=== PATIENT | male | born 1940 | race Caucasian/White ===

== ENCOUNTER 2017-10-26 19:09 | Inpatient (IN) | payer MEDICARE, BC ==
[~2017-10-26] VITALS: Ht 180.3 cm; Wt 97.0 kg
[~2017-10-26 19:09] MED LIST: ATOR40TA PO; B CM1TAB PO; BIOT25008 PO; CLOP75TA35 PO; DOCU250C4 PO; GLUC1CAP36 PO; HYDR-3972 PO; HYDR25TA4 PO; LOSA25TA12 PO; METO25TA6 PO; MULT-1085 PO
[2017-10-26] MEDS ORDERED: FLO0.4C PO (19:30)
[2017-10-26] MEDS ORDERED: MELA3TAB PO (19:30)
[2017-10-26] MEDS ORDERED: DABI150C PO (19:30)
[2017-10-26] MEDS ORDERED: morphine 4 MG/ML inj SYRINge IV ONE (20:50)
[2017-10-26 21:53] LABS: BASOPHILS % (AUTO) 0.1 % (0-1); EOSINOPHILS # (AUTO) 0.1 X10'3 (0-0.9); EOSINOPHILS % (AUTO) 1.2 % (0-6); HEMATOCRIT 51.4 % (42.0-52.0); HEMOGLOBIN 16.6 g/dl (14.0-17.9); LYMPHOCYTES # (AUTO) 0.7 X10'3 (1.1-4.8); LYMPHOCYTES % (AUTO) 7.1 % (21-51); MEAN CORPUSCULAR HEMOGLOBIN 30.7 PG (27.0-31.0); MEAN CORPUSCULAR HGB CONC 32.3 % (33.0-36.5); MEAN CORPUSCULAR VOLUME 94.8 FL (78-98); MEAN PLATELET VOLUME 8.4 FL (7.4-10.4); MONOCYTES # (AUTO) 0.8 X10'3 (0-0.9); NEUTROPHILS # (AUTO) 8.6 X10'3 (1.8-7.7); NEUTROPHILS % (AUTO) 83.6 % (42-75); PLATELET COUNT 188 X10'3 (140-440); RED BLOOD COUNT 5.42 X10'6 (4.70-6.10); RED CELL DISTRIBUTION WIDTH 16.1 % (11.5-14.5); WHITE BLOOD COUNT 10.3 X10'3 (4.5-11.0)
[2017-10-26] MEDS ORDERED: mag hydrox/Alum hydrox/simeth 30ml oral suspension PO PRN (21:55)
[2017-10-26] MEDS ORDERED: morphine 4 MG/ML inj SYRINge IV PRN (21:55)
[2017-10-26] MEDS ORDERED: ondansetron/PF 4mg/2ml inj IV PRN (21:55)
[2017-10-26] MEDS ORDERED: acetaminophen 325mg tablet PO PRN (21:55)
[2017-10-26 22:09] LABS: ALBUMIN 2.9 G/DL (3.4-5.0); ALBUMIN/GLOBULIN RATIO 0.7 (1.1-1.5); ALKALINE PHOSPHATASE 204 IU/L (46-116); ANION GAP 7 (8-16); ASPARTATE AMINO TRANSFERASE 32 U/L (10-37); BILIRUBIN,TOTAL 2.4 MG/DL (0.1-1.0); BLOOD UREA NITROGEN 25 MG/DL (7-18); BUN/CREATININE RATIO 20.3 (5.4-32.0); CHLORIDE 104 MMOL/L (99-107); CREATININE 1.23 MG/DL (0.60-1.10); GLUCOSE 122 MG/DL (70-104); POTASSIUM 3.6 MMOL/L (3.5-5.1); SODIUM 139 MMOL/L (135-145); TOTAL CARBON DIOXIDE 28.4 MMOL/L (24-32); TOTAL PROTEIN 7.2 G/DL (6.4-8.2); eGFR 57 ML/MIN
[2017-10-26 22:24] LABS: ALANINE AMINOTRANSFERASE 30 U/L (12-78)
[2017-10-26] MEDS: normal saline 1000ml 1,000 ML IV SCH (22:36)
[2017-10-26 22:48] LABS: INR 1.2 INR; PARTIAL THROMBOPLASTIN TIME 28 SECONDS (22-32); PROTHROMBIN TIME 12.6 SECONDS (9.0-12.0)
[2017-10-26 23:00] VITALS: BP 147/84
[2017-10-26] MEDS: ceFAZolin 1GM/D5W- ADD-VANTAGE 50 ML IV SCH (23:03)
[2017-10-26] MEDS: morphine 4 MG/ML inj SYRINge IV PRN (23:58)
[2017-10-27] VITALS (13 sets, daily range): BP systolic 113–142; BP diastolic 65–97
[2017-10-27 05:11] LABS: BASOPHILS % (AUTO) 0.3 % (0-1); EOSINOPHILS # (AUTO) 0.2 X10'3 (0-0.9); EOSINOPHILS % (AUTO) 1.8 % (0-6); HEMATOCRIT 49.4 % (42.0-52.0); LYMPHOCYTES # (AUTO) 0.8 X10'3 (1.1-4.8); LYMPHOCYTES % (AUTO) 8.5 % (21-51); MEAN CORPUSCULAR HEMOGLOBIN 30.9 PG (27.0-31.0); MEAN CORPUSCULAR HGB CONC 32.3 % (33.0-36.5); MEAN CORPUSCULAR VOLUME 95.6 FL (78-98); MEAN PLATELET VOLUME 8.3 FL (7.4-10.4); MONOCYTES % (AUTO) 10.6 % (2-12); NEUTROPHILS # (AUTO) 7.5 X10'3 (1.8-7.7); NEUTROPHILS % (AUTO) 78.8 % (42-75); PLATELET COUNT 184 X10'3 (140-440); RED BLOOD COUNT 5.17 X10'6 (4.70-6.10); RED CELL DISTRIBUTION WIDTH 16.4 % (11.5-14.5); WHITE BLOOD COUNT 9.6 X10'3 (4.5-11.0)
[2017-10-27 05:36] LABS: ALBUMIN 2.7 G/DL (3.4-5.0); ANION GAP 7 (8-16); BLOOD UREA NITROGEN 28 MG/DL (7-18); BUN/CREATININE RATIO 23.5 (5.4-32.0); CHLORIDE 105 MMOL/L (99-107); CREATININE 1.19 MG/DL (0.60-1.10); GLUCOSE 134 MG/DL (70-104); POTASSIUM 3.6 MMOL/L (3.5-5.1); SODIUM 141 MMOL/L (135-145); TOTAL CARBON DIOXIDE 29.2 MMOL/L (24-32); eGFR 59 ML/MIN
[2017-10-27] MEDS: ceFAZolin 1GM/D5W- ADD-VANTAGE 50 ML IV SCH ×2 (07:42→22:40)
[2017-10-27] MEDS: losartan 25mg tablet PO SCH (07:43)
[2017-10-27] MEDS: tamsulosin 0.4mg capsule PO SCH (07:43)
[2017-10-27] MEDS: metoprolol tartrate 25mg tablet PO SCH (07:44)
[2017-10-27] MEDS: docusate sod 250mg capsule PO SCH ×2 (08:00→20:00)
[2017-10-27] MEDS: vitamin B comp w/Vit. C tab 1 TAB TABLET PO SCH (08:00)
[2017-10-27] MEDS: multivitamins, therapeutics tablet PO SCH (08:00)
[2017-10-27] MEDS: HYDROchlorothiazide 25mg tablet PO SCH (08:00)
[2017-10-27] MEDS ORDERED: [UNRECOGNIZED DRUG - OTHER] PO SCH (08:00)
[2017-10-27] MEDS: normal saline 1000ml 1,000 ML IV SCH (12:09)
[2017-10-27] MEDS: morphine 4 MG/ML inj SYRINge IV PRN (14:38)
[2017-10-27] MEDS: lactobacillus rhamnosus 10,000 MMU CELLS/CAPSULE PO SCH (20:00)
[2017-10-27] MEDS ORDERED: sevoflurane 250ml liquid IH ONE (20:28)
[2017-10-27] MEDS ORDERED: fentaNYL /PF 50mcg/ml 5ml ampule ONE (20:31)
[2017-10-27] MEDS ORDERED: propofol inj 20 ML IV ONE (20:31)
[2017-10-27] MEDS ORDERED: ringers solution, lacted 1,000 ML IV SCH (20:58)
[2017-10-27] MEDS: Melatonin 3mg tablet PO SCH (21:00)
[2017-10-27] MEDS ORDERED: proCHLORperazine 10 MG/2 ml inj IV PRN (21:00)
[2017-10-27] MEDS ORDERED: ondansetron/PF 4mg/2ml inj IV PRN (21:00)
[2017-10-27] MEDS: atorvastatin 20mg tablet PO SCH (21:00)
[2017-10-27] MEDS ORDERED: morphine 4 MG/ML inj SYRINge IV PRN ×2 (21:00)
[2017-10-27] MEDS ORDERED: meperidine/PF 25mg/ml syringe IV PRN ×3 (21:00)
[2017-10-28] VITALS (8 sets, daily range): BP systolic 116–142; BP diastolic 77–86
[2017-10-28] MEDS: ceFAZolin 1GM/D5W- ADD-VANTAGE 50 ML IV SCH ×3 (00:13→15:33)
[2017-10-28] MEDS: normal saline 1000ml 1,000 ML IV SCH ×2 (02:45→13:54)
[2017-10-28] MEDS: morphine 4 MG/ML inj SYRINge IV PRN ×2 (02:45→07:33)
[2017-10-28 04:46] LABS: BASOPHILS % (AUTO) 0 % (0-1); EOSINOPHILS # (AUTO) 0.2 X10'3 (0-0.9); EOSINOPHILS % (AUTO) 1.4 % (0-6); HEMATOCRIT 47.2 % (42.0-52.0); HEMOGLOBIN 15.3 g/dl (14.0-17.9); LYMPHOCYTES # (AUTO) 0.6 X10'3 (1.1-4.8); LYMPHOCYTES % (AUTO) 4.6 % (21-51); MEAN CORPUSCULAR HEMOGLOBIN 30.9 PG (27.0-31.0); MEAN CORPUSCULAR HGB CONC 32.5 % (33.0-36.5); MEAN CORPUSCULAR VOLUME 95.2 FL (78-98); MEAN PLATELET VOLUME 8.5 FL (7.4-10.4); MONOCYTES # (AUTO) 0.9 X10'3 (0-0.9); MONOCYTES % (AUTO) 7.1 % (2-12); NEUTROPHILS # (AUTO) 10.5 X10'3 (1.8-7.7); NEUTROPHILS % (AUTO) 86.9 % (42-75); PLATELET COUNT 171 X10'3 (140-440); RED BLOOD COUNT 4.96 X10'6 (4.70-6.10); WHITE BLOOD COUNT 12.1 X10'3 (4.5-11.0)
[2017-10-28 04:57] LABS: ALBUMIN 2.4 G/DL (3.4-5.0); ANION GAP 9 (8-16); BLOOD UREA NITROGEN 27 MG/DL (7-18); BUN/CREATININE RATIO 21.3 (5.4-32.0); CALCIUM 8.7 MG/DL (8.5-10.1); CHLORIDE 105 MMOL/L (99-107); CREATININE 1.27 MG/DL (0.60-1.10); GLUCOSE 141 MG/DL (70-104); POTASSIUM 3.9 MMOL/L (3.5-5.1); SODIUM 138 MMOL/L (135-145); TOTAL CARBON DIOXIDE 24.5 MMOL/L (24-32); eGFR 55 ML/MIN
[2017-10-28] MEDS ORDERED: HYDROcodone/acetaminophen 5mg/325mg tablet PO PRN (05:05)
[2017-10-28] MEDS: HYDROcodone/acetaminophen 5mg/325mg tablet PO PRN ×4 (05:18→17:04)
[2017-10-28] MEDS: tamsulosin 0.4mg capsule PO SCH (07:35)
[2017-10-28] MEDS: metoprolol tartrate 25mg tablet PO SCH (07:35)
[2017-10-28] MEDS: losartan 25mg tablet PO SCH (07:35)
[2017-10-28] MEDS: HYDROchlorothiazide 25mg tablet PO SCH (07:36)
[2017-10-28] MEDS: docusate sod 250mg capsule PO SCH ×2 (07:36→20:29)
[2017-10-28] MEDS: lactobacillus rhamnosus 10,000 MMU CELLS/CAPSULE PO SCH ×2 (07:36→20:29)
[2017-10-28] MEDS: vitamin B comp w/Vit. C tab 1 TAB TABLET PO SCH (07:37)
[2017-10-28] MEDS: multivitamins, therapeutics tablet PO SCH (07:37)
[2017-10-28] MEDS: dabigatran 150mg capsule PO SCH (20:29)
[2017-10-28] MEDS: Melatonin 3mg tablet PO SCH (20:29)
[2017-10-28] MEDS: atorvastatin 20mg tablet PO SCH (20:29)
[2017-10-29] MEDS: ceFAZolin 1GM/D5W- ADD-VANTAGE 50 ML IV SCH ×3 (00:17→15:50)
[2017-10-29] MEDS: HYDROcodone/acetaminophen 5mg/325mg tablet PO PRN ×5 (04:24→20:02)
[2017-10-29 05:43] LABS: BASOPHILS % (AUTO) 0.2 % (0-1); EOSINOPHILS # (AUTO) 0.3 X10'3 (0-0.9); EOSINOPHILS % (AUTO) 2.8 % (0-6); HEMATOCRIT 46.8 % (42.0-52.0); HEMOGLOBIN 15.4 g/dl (14.0-17.9); LYMPHOCYTES # (AUTO) 0.9 X10'3 (1.1-4.8); MEAN CORPUSCULAR HEMOGLOBIN 31.3 PG (27.0-31.0); MEAN CORPUSCULAR VOLUME 94.9 FL (78-98); MEAN PLATELET VOLUME 8.4 FL (7.4-10.4); MONOCYTES # (AUTO) 1.3 X10'3 (0-0.9); MONOCYTES % (AUTO) 11.8 % (2-12); NEUTROPHILS # (AUTO) 8.4 X10'3 (1.8-7.7); NEUTROPHILS % (AUTO) 77.2 % (42-75); PLATELET COUNT 163 X10'3 (140-440); RED BLOOD COUNT 4.93 X10'6 (4.70-6.10); RED CELL DISTRIBUTION WIDTH 16.5 % (11.5-14.5); WHITE BLOOD COUNT 10.8 X10'3 (4.5-11.0)
[2017-10-29 05:54] LABS: ALBUMIN 2.3 G/DL (3.4-5.0); ANION GAP 9 (8-16); BLOOD UREA NITROGEN 28 MG/DL (7-18); CALCIUM 8.4 MG/DL (8.5-10.1); CHLORIDE 102 MMOL/L (99-107); CREATININE 1.22 MG/DL (0.60-1.10); GLUCOSE 103 MG/DL (70-104); POTASSIUM 3.8 MMOL/L (3.5-5.1); SODIUM 136 MMOL/L (135-145); TOTAL CARBON DIOXIDE 25.2 MMOL/L (24-32); eGFR 57 ML/MIN
[2017-10-29 06:00] VITALS: BP 132/77
[2017-10-29] MEDS: normal saline 1000ml 1,000 ML IV SCH ×2 (06:51→12:56)
[2017-10-29] MEDS: dabigatran 150mg capsule PO SCH ×2 (08:12→20:03)
[2017-10-29] MEDS: docusate sod 250mg capsule PO SCH ×2 (08:13→20:02)
[2017-10-29] MEDS: tamsulosin 0.4mg capsule PO SCH (08:13)
[2017-10-29] MEDS: lactobacillus rhamnosus 10,000 MMU CELLS/CAPSULE PO SCH ×2 (08:13→20:03)
[2017-10-29] MEDS: multivitamins, therapeutics tablet PO SCH (08:14)
[2017-10-29] MEDS: losartan 25mg tablet PO SCH (08:14)
[2017-10-29] MEDS: vitamin B comp w/Vit. C tab 1 TAB TABLET PO SCH (08:14)
[2017-10-29] MEDS: HYDROchlorothiazide 25mg tablet PO SCH (08:14)
[2017-10-29] MEDS: metoprolol tartrate 25mg tablet PO SCH (08:15)
[2017-10-29 10:00] VITALS: BP 152/87
[2017-10-29] MEDS: Protein Shake (high protein) 240ml (8oz) cup PO SCH ×3 (10:17→18:00)
[2017-10-29 18:00] VITALS: BP 135/92
[2017-10-29] MEDS: atorvastatin 20mg tablet PO SCH (20:02)
[2017-10-29] MEDS: Melatonin 3mg tablet PO SCH (20:03)
[2017-10-29 22:00] VITALS: BP 141/82
[2017-10-30] MEDS: HYDROcodone/acetaminophen 5mg/325mg tablet PO PRN ×4 (00:16→19:53)
[2017-10-30] MEDS: ceFAZolin 1GM/D5W- ADD-VANTAGE 50 ML IV SCH ×2 (00:17→08:22)
[2017-10-30] MEDS: temazepam 15mg capsule PO PRN (00:21)
[2017-10-30] MEDS: normal saline 1000ml 1,000 ML IV SCH ×2 (02:38→15:22)
[2017-10-30 05:48] LABS: BASOPHILS % (AUTO) 0.2 % (0-1); EOSINOPHILS # (AUTO) 0.4 X10'3 (0-0.9); EOSINOPHILS % (AUTO) 3.7 % (0-6); HEMATOCRIT 46.8 % (42.0-52.0); HEMOGLOBIN 15.4 g/dl (14.0-17.9); LYMPHOCYTES # (AUTO) 0.8 X10'3 (1.1-4.8); LYMPHOCYTES % (AUTO) 7.9 % (21-51); MEAN CORPUSCULAR HEMOGLOBIN 31.4 PG (27.0-31.0); MEAN CORPUSCULAR HGB CONC 32.8 % (33.0-36.5); MEAN CORPUSCULAR VOLUME 95.6 FL (78-98); MEAN PLATELET VOLUME 8.5 FL (7.4-10.4); MONOCYTES # (AUTO) 1.5 X10'3 (0-0.9); MONOCYTES % (AUTO) 14.7 % (2-12); NEUTROPHILS # (AUTO) 7.3 X10'3 (1.8-7.7); NEUTROPHILS % (AUTO) 73.5 % (42-75); PLATELET COUNT 157 X10'3 (140-440); RED BLOOD COUNT 4.89 X10'6 (4.70-6.10); RED CELL DISTRIBUTION WIDTH 16.4 % (11.5-14.5); WHITE BLOOD COUNT 9.9 X10'3 (4.5-11.0)
[2017-10-30 06:00] VITALS: BP 136/78
[2017-10-30 06:13] LABS: ALBUMIN 1.9 G/DL (3.4-5.0); ANION GAP 8 (8-16); BLOOD UREA NITROGEN 23 MG/DL (7-18); BUN/CREATININE RATIO 23.2 (5.4-32.0); CALCIUM 8.3 MG/DL (8.5-10.1); CHLORIDE 103 MMOL/L (99-107); CREATININE 0.99 MG/DL (0.60-1.10); GLUCOSE 96 MG/DL (70-104); SODIUM 134 MMOL/L (135-145); TOTAL CARBON DIOXIDE 23.4 MMOL/L (24-32); eGFR 73 ML/MIN
[2017-10-30 06:16] LABS: POTASSIUM 3.6 MMOL/L (3.5-5.1)
[2017-10-30] MEDS: Protein Shake (high protein) 240ml (8oz) cup PO SCH ×3 (08:00→18:00)
[2017-10-30] MEDS: dabigatran 150mg capsule PO SCH ×2 (08:23→19:52)
[2017-10-30] MEDS: vitamin B comp w/Vit. C tab 1 TAB TABLET PO SCH (08:23)
[2017-10-30] MEDS: lactobacillus rhamnosus 10,000 MMU CELLS/CAPSULE PO SCH ×2 (08:24→19:52)
[2017-10-30] MEDS: docusate sod 250mg capsule PO SCH ×2 (08:24→19:52)
[2017-10-30] MEDS: losartan 25mg tablet PO SCH (08:24)
[2017-10-30] MEDS: HYDROchlorothiazide 25mg tablet PO SCH (08:24)
[2017-10-30] MEDS: tamsulosin 0.4mg capsule PO SCH (08:24)
[2017-10-30] MEDS: metoprolol tartrate 25mg tablet PO SCH (08:24)
[2017-10-30] MEDS: multivitamins, therapeutics tablet PO SCH (08:24)
[2017-10-30 18:00] VITALS: BP 139/85
[2017-10-30] MEDS: magnesium hydroxide 30ml (MOM) UD suspension PO PRN (19:52)
[2017-10-30] MEDS: Melatonin 3mg tablet PO SCH (19:52)
[2017-10-30] MEDS: atorvastatin 20mg tablet PO SCH (19:53)
[2017-10-31] MEDS: HYDROcodone/acetaminophen 5mg/325mg tablet PO PRN ×5 (04:52→23:32)
[2017-10-31 06:00] VITALS: BP 134/78
[2017-10-31 07:01] LABS: BASOPHILS % (AUTO) 0.1 % (0-1); EOSINOPHILS # (AUTO) 0.2 X10'3 (0-0.9); EOSINOPHILS % (AUTO) 2.4 % (0-6); HEMATOCRIT 45.3 % (42.0-52.0); HEMOGLOBIN 14.9 g/dl (14.0-17.9); LYMPHOCYTES # (AUTO) 0.7 X10'3 (1.1-4.8); LYMPHOCYTES % (AUTO) 7.3 % (21-51); MEAN CORPUSCULAR HGB CONC 32.8 % (33.0-36.5); MEAN CORPUSCULAR VOLUME 94.5 FL (78-98); MEAN PLATELET VOLUME 8.1 FL (7.4-10.4); MONOCYTES # (AUTO) 0.9 X10'3 (0-0.9); MONOCYTES % (AUTO) 9.6 % (2-12); NEUTROPHILS # (AUTO) 7.6 X10'3 (1.8-7.7); NEUTROPHILS % (AUTO) 80.6 % (42-75); PLATELET COUNT 190 X10'3 (140-440); RED BLOOD COUNT 4.79 X10'6 (4.70-6.10); RED CELL DISTRIBUTION WIDTH 16.2 % (11.5-14.5); WHITE BLOOD COUNT 9.4 X10'3 (4.5-11.0)
[2017-10-31] MEDS: metoprolol tartrate 25mg tablet PO SCH (07:49)
[2017-10-31] MEDS: dabigatran 150mg capsule PO SCH ×2 (07:49→19:39)
[2017-10-31] MEDS: docusate sod 250mg capsule PO SCH ×2 (07:50→19:39)
[2017-10-31] MEDS: tamsulosin 0.4mg capsule PO SCH (07:50)
[2017-10-31] MEDS: lactobacillus rhamnosus 10,000 MMU CELLS/CAPSULE PO SCH ×2 (07:50→19:38)
[2017-10-31] MEDS: vitamin B comp w/Vit. C tab 1 TAB TABLET PO SCH (07:50)
[2017-10-31] MEDS: multivitamins, therapeutics tablet PO SCH (07:50)
[2017-10-31] MEDS: HYDROchlorothiazide 25mg tablet PO SCH (07:50)
[2017-10-31] MEDS: losartan 25mg tablet PO SCH (07:50)
[2017-10-31 08:00] LABS: ANION GAP 12 (8-16); BLOOD UREA NITROGEN 17 MG/DL (7-18); BUN/CREATININE RATIO 16.8 (5.4-32.0); CALCIUM 8.3 MG/DL (8.5-10.1); CHLORIDE 102 MMOL/L (99-107); CREATININE 1.01 MG/DL (0.60-1.10); GLUCOSE 151 MG/DL (70-104); POTASSIUM 3.3 MMOL/L (3.5-5.1); SODIUM 137 MMOL/L (135-145); TOTAL CARBON DIOXIDE 22.6 MMOL/L (24-32); eGFR 71 ML/MIN
[2017-10-31] MEDS: Protein Shake (high protein) 240ml (8oz) cup PO SCH ×3 (08:00→18:00)
[2017-10-31 10:00] VITALS: BP 136/84
[2017-10-31] MEDS ORDERED: potassium Cl 20 mEq SR tablet PO PRN (10:55)
[2017-10-31] MEDS ORDERED: potassium Cl 40MEQ/NS 500ml 500 ML IV PRN ×2 (10:55)
[2017-10-31] MEDS ORDERED: magnesium Cl slow-release 64mg tablet PO PRN (10:55)
[2017-10-31] MEDS: potassium Cl 20 mEq SR tablet PO PRN ×3 (11:13→19:38)
[2017-10-31] MEDS: dutasteride 0.5 MG capsule PO SCH (12:22)
[2017-10-31 18:00] VITALS: BP 128/88
[2017-10-31] MEDS: atorvastatin 20mg tablet PO SCH (19:38)
[2017-10-31] MEDS: Melatonin 3mg tablet PO SCH (19:38)
[2017-10-31 22:00] VITALS: BP 126/82
[2017-10-31] MEDS: temazepam 15mg capsule PO PRN (22:40)
[2017-11-01] MEDS: HYDROcodone/acetaminophen 5mg/325mg tablet PO PRN ×5 (05:15→22:59)
[2017-11-01 06:51] LABS: MAGNESIUM 1.9 MG/DL (1.5-2.4); POTASSIUM 4.2 MMOL/L (3.5-5.1)
[2017-11-01 07:15] VITALS: BP 142/84
[2017-11-01] MEDS: vitamin B comp w/Vit. C tab 1 TAB TABLET PO SCH (07:41)
[2017-11-01] MEDS: docusate sod 250mg capsule PO SCH ×2 (07:41→20:39)
[2017-11-01] MEDS: lactobacillus rhamnosus 10,000 MMU CELLS/CAPSULE PO SCH ×2 (07:41→20:38)
[2017-11-01] MEDS: tamsulosin 0.4mg capsule PO SCH (07:41)
[2017-11-01] MEDS: HYDROchlorothiazide 25mg tablet PO SCH (07:41)
[2017-11-01] MEDS: multivitamins, therapeutics tablet PO SCH (07:41)
[2017-11-01] MEDS: losartan 25mg tablet PO SCH (07:41)
[2017-11-01] MEDS: dabigatran 150mg capsule PO SCH ×2 (07:42→20:39)
[2017-11-01] MEDS: metoprolol tartrate 25mg tablet PO SCH (07:42)
[2017-11-01] MEDS: dutasteride 0.5 MG capsule PO SCH (07:43)
[2017-11-01] MEDS: Protein Shake (high protein) 240ml (8oz) cup PO SCH ×3 (08:27→18:53)
[2017-11-01 10:00] VITALS: BP 114/70
[2017-11-01 18:00] VITALS: BP 129/92
[2017-11-01] MEDS: atorvastatin 20mg tablet PO SCH (20:39)
[2017-11-01] MEDS: Melatonin 3mg tablet PO SCH (20:39)
[2017-11-01 22:00] VITALS: BP 134/92
[2017-11-01] MEDS: temazepam 15mg capsule PO PRN (23:04)
[2017-11-02] MEDS: HYDROcodone/acetaminophen 5mg/325mg tablet PO PRN ×5 (03:34→20:07)
[2017-11-02 06:00] VITALS: BP 148/88
[2017-11-02 06:19] LABS: MAGNESIUM 1.8 MG/DL (1.5-2.4); POTASSIUM 4.3 MMOL/L (3.5-5.1)
[2017-11-02] MEDS: tamsulosin 0.4mg capsule PO SCH (07:35)
[2017-11-02] MEDS: multivitamins, therapeutics tablet PO SCH (07:35)
[2017-11-02] MEDS: docusate sod 250mg capsule PO SCH ×2 (07:35→20:06)
[2017-11-02] MEDS: HYDROchlorothiazide 25mg tablet PO SCH (07:35)
[2017-11-02] MEDS: dabigatran 150mg capsule PO SCH ×2 (07:36→20:07)
[2017-11-02] MEDS: dutasteride 0.5 MG capsule PO SCH (07:36)
[2017-11-02] MEDS: lactobacillus rhamnosus 10,000 MMU CELLS/CAPSULE PO SCH ×2 (07:36→20:06)
[2017-11-02] MEDS: losartan 25mg tablet PO SCH (07:36)
[2017-11-02] MEDS: vitamin B comp w/Vit. C tab 1 TAB TABLET PO SCH (07:36)
[2017-11-02] MEDS: metoprolol tartrate 25mg tablet PO SCH (07:36)
[2017-11-02] MEDS: Protein Shake (high protein) 240ml (8oz) cup PO SCH ×3 (08:37→18:00)
[2017-11-02 10:00] VITALS: BP 131/80
[2017-11-02] MEDS ORDERED: metoprolol tartrate 50mg tablet PO ONE (17:00)
[2017-11-02] MEDS ORDERED: magnesium 1gm/100ml D5W IVPB 100 ML IV ONE (17:00)
[2017-11-02] MEDS: magnesium hydroxide 30ml (MOM) UD suspension PO PRN (20:06)
[2017-11-02] MEDS: atorvastatin 20mg tablet PO SCH (20:06)
[2017-11-02] MEDS: Melatonin 3mg tablet PO SCH (20:06)
[2017-11-02 20:37] VITALS: BP 146/87
[2017-11-02 22:00] VITALS: BP 130/86
[2017-11-03] MEDS: HYDROcodone/acetaminophen 5mg/325mg tablet PO PRN ×3 (01:07→09:58)
[2017-11-03 05:00] VITALS: BP 148/86
[2017-11-03 06:37] LABS: ALANINE AMINOTRANSFERASE 30 U/L (12-78); ALBUMIN 2.1 G/DL (3.4-5.0); ALBUMIN/GLOBULIN RATIO 0.5 (1.1-1.5); ALKALINE PHOSPHATASE 205 IU/L (46-116); ANION GAP 4 (8-16); ASPARTATE AMINO TRANSFERASE 45 U/L (10-37); BILIRUBIN,TOTAL 1.7 MG/DL (0.1-1.0); BLOOD UREA NITROGEN 16 MG/DL (7-18); BUN/CREATININE RATIO 16.5 (5.4-32.0); CALCIUM 8.6 MG/DL (8.5-10.1); CHLORIDE 100 MMOL/L (99-107); CREATININE 0.97 MG/DL (0.60-1.10); GLUCOSE 116 MG/DL (70-104); MAGNESIUM 2.1 MG/DL (1.5-2.4); POTASSIUM 4.3 MMOL/L (3.5-5.1); SODIUM 135 MMOL/L (135-145); TOTAL PROTEIN 6.2 G/DL (6.4-8.2); eGFR 75 ML/MIN
[2017-11-03] MEDS: Protein Shake (high protein) 240ml (8oz) cup PO SCH (08:00)
[2017-11-03] MEDS ORDERED: metoprolol succinate 25mg (24-HOUR) SR. Tablet PO SCH (08:00)
[2017-11-03] MEDS: vitamin B comp w/Vit. C tab 1 TAB TABLET PO SCH (09:48)
[2017-11-03] MEDS: multivitamins, therapeutics tablet PO SCH (09:48)
[2017-11-03] MEDS: lactobacillus rhamnosus 10,000 MMU CELLS/CAPSULE PO SCH (09:49)
[2017-11-03] MEDS: docusate sod 250mg capsule PO SCH (09:49)
[2017-11-03] MEDS: HYDROchlorothiazide 25mg tablet PO SCH (09:50)
[2017-11-03] MEDS: losartan 25mg tablet PO SCH (09:50)
[2017-11-03] MEDS: tamsulosin 0.4mg capsule PO SCH (09:50)
[2017-11-03] MEDS: dutasteride 0.5 MG capsule PO SCH (09:58)
[2017-11-03] MEDS: dabigatran 150mg capsule PO SCH (09:58)
[2017-11-03 10:00] VITALS: BP 150/89
== END 2017-11-03 12:45 | DRG 481 ==
LOC: ER 19:10 → ED HOLD 21:54 → ORTHO 4S 22:20
PROVIDERS: ADMIT Hospitalist; ATTEND Orthopaedic Surgery
PROC: BQ111ZZ Fluoroscopy of Left Hip using Low Osmolar Contrast (ICD-10-PCS; 2017-10-27)
PROC: 0QS734Z Reposition Left Upper Femur with Internal Fixation Device, Percutaneous Approach (ICD-10-PCS; principal; 2017-10-27 20:28)
DX: S72.012A Unspecified intracapsular fracture of left femur, initial encounter for closed fracture (principal); E87.1 Hypo-osmolality and hyponatremia; I47.2 Ventricular tachycardia; E78.5 Hyperlipidemia, unspecified; I12.9 Hypertensive chronic kidney disease with stage 1 through stage 4 chronic kidney disease, or unspecified chronic kidney disease; I25.10 Atherosclerotic heart disease of native coronary artery without angina pectoris; I48.91 Unspecified atrial fibrillation; E66.9 Obesity, unspecified; K21.9 Gastro-esophageal reflux disease without esophagitis; N18.3 Chronic kidney disease, stage 3 (moderate); N40.1 Benign prostatic hyperplasia with lower urinary tract symptoms; W01.0XXA Fall on same level from slipping, tripping and stumbling without subsequent striking against object, initial encounter; E87.6 Hypokalemia; R33.8 Other retention of urine; K59.00 Constipation, unspecified; G62.9 Polyneuropathy, unspecified; Z96.641 Presence of right artificial hip joint; Z96.652 Presence of left artificial knee joint; Z60.2 Problems related to living alone; Z66 Do not resuscitate; Z75.1 Person awaiting admission to adequate facility elsewhere; Z89.411 Acquired absence of right great toe; Z95.0 Presence of cardiac pacemaker; Z95.1 Presence of aortocoronary bypass graft; Z79.899 Other long term (current) drug therapy; Z68.29 Body mass index [BMI] 29.0-29.9, adult; Y93.89 Activity, other specified; Y92.89 Other specified places as the place of occurrence of the external cause; Y99.8 Other external cause status
CPT/HCPCS: 36415; 71045; 73502; 80048; 80053; 83605; 83735; 84132; 85025; 85610; 85730; 87040; 87070; 93306; 96374; 97110; 97116; 97161; 97530; 99285; A4315; A4353; A6212; A6213; A6222; A6255; A6446; A6449; C1713; J0690; J2175; J2270; J2704; J3010; J3370; J7030; J7120